=== PATIENT | female | born 1995 | race African-American/Black ===

== ENCOUNTER 2016-12-14 17:29 | Emergency (ER) | payer OTHER ==
[2016-12-14] MEDS ORDERED: IBUPROFEN 800 MG TABLET PO ONE (19:05)
[2016-12-14] MEDS ORDERED: CYCLOBENZAPRINE HCL 10 MG TABLET PO ONE (19:05)
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
[2016-12-14 19:31] VITALS: BP 131/75
== END 2016-12-14 19:20 | disposition home or self-care (01) ==
LOC: ER 17:29
DX: M54.5 Low back pain (principal); V43.52XA Car driver injured in collision with other type car in traffic accident, initial encounter; E11.9 Type 2 diabetes mellitus without complications
CPT/HCPCS: 99283